=== PATIENT | female | born 1945 | race African-American/Black ===

== ENCOUNTER 2021-03-02 03:00 | Emergency (ER) | payer OTHER ==
[~2021-03-02] VITALS: Ht 162.6 cm; Wt 88.0 kg
[2021-03-02] MEDS ORDERED: PHENAZOPYRIDINE 200 MG TABLET. PO ONE (03:30)
[2021-03-02 03:32] LABS: BILIRUBIN,URINE SMALL (NEG); CLARITY,URINE CLEAR; COLOR,URINE YELLOW; NITRITE,URINE NEGATIVE (NEG); PH,URINE 5.5 (<5.0-8.0); PROTEIN,URINE NEGATIVE (NEG-TRACE)
[2021-03-02 03:44] LABS: BACTERIA,URINE FEW /HPF (0-FEW); RBC,URINE OCC /HPF (0-2)
[2021-03-02] MEDS ORDERED: NITR100C63 PO (03:51)
[2021-03-02] MEDS ORDERED: PHEN-318 PO (03:51)
--- NOTE | 2021-03-02 03:52 | PHYS DOC ---
Past Medical History Past Surgical History: No Surgical History Smoking Status: Never Smoker Alcohol Use: None General Adult EDM: Chief Complaint: BACK PAIN OR INJURY HPI: HPI: Patient is a 75 year old female presents with the chief complaint of bilateral flank pain right side greater than left x 2-3 days. Patient states right sided pain radiates to right suprapubic region. Patient states she has associated urinary frequency. She denies dysuria. States in december had same symptoms was evalauted by pcp and dx with uti. Patient was placed on keflex. Review of Systems: Review of Systems: Constitutional: Denies fever or chills. [] Eyes: Denies change in visual acuity. [] HENT: Denies nasal congestion or sore throat. [] Respiratory: Denies cough or shortness of breath. [] Cardiovascular: Denies chest pain or edema. [] GI: Denies abdominal pain, nausea, vomiting, bloody stools or diarrhea. [] : Denies dysuria. [positive flank pain positive urinary frequency] Musculoskeletal: Denies back pain or joint pain. [] Integument: Denies rash. [] Neurologic: Denies headache, focal weakness or sensory changes. [] Endocrine: Denies polyuria or polydipsia. [] Lymphatic: Denies swollen glands. [] Psychiatric: Denies depression or anxiety. [] Heart Score: C/O Chest Pain: N/A Risk Factors: Risk Factors: DM, Current or recent (<one month) smoker, HTN, HLP, family history of CAD, obesity. Risk Scores: Score 0 - 3: 2.5% MACE over next 6 weeks - Discharge Home Score 4 - 6: 20.3% MACE over next 6 weeks - Admit for Clinical Observation Score 7 - 10: 72.7% MACE over next 6 weeks - Early Invasive Strategies Current Medications: Current Medications Medications (Trade) Dose Ordered Sig/Geovanna Start Time Stop Time Status Last Admin Dose Admin Phenazopyridine HCl (Pyridium) 200 mg 1X ONCE 03/02/21 03:30 03/02/21 03:33 DC Allergies: Allergies: Allergies Coded Allergies Type Severity Reaction Last Updated Verified No Known Drug Allergies 03/02/21 No Physical Exam: PE: Constitutional: Well developed, well nourished, no acute distress, non-toxic appearance. [] HENT: Normocephalic, atraumatic, bilateral external ears normal, oropharynx moist, no oral exudates, nose normal. [] Eyes: PERRLA, EOMI, conjunctiva normal, no discharge. [] Neck: Normal range of motion, no tenderness, supple, no stridor. [] Cardiovascular:Heart rate regular rhythm, no murmur [] Lungs & Thorax: Bilateral breath sounds clear to auscultation [] Abdomen: Bowel sounds normal, soft, no tenderness, no masses, no pulsatile masses. [] Skin: Warm, dry, no erythema, no rash. [] Back: No tenderness, no CVA tenderness. [] Extremities: No tenderness, no cyanosis, no clubbing, ROM intact, no edema. [] Neurologic: Alert and oriented X 3, normal motor function, normal sensory function, no focal deficits noted. [] Psychologic: Affect normal, judgement normal, mood normal. [] Current Patient Data: Labs: Laboratory Tests Test 03/02/21 03:17 Urine Collection Type Unknown Urine Color Yellow Urine Clarity Clear Urine pH 5.5 (<5.0-8.0) Urine Specific Matthews 1.025 (1.000-1.030) Urine Protein Negative mg/dL (NEG-TRACE) Urine Glucose (UA) Negative mg/dL (NEG) Urine Ketones (Stick) Negative mg/dL (NEG) Urine Blood Negative (NEG) Urine Nitrite Negative (NEG) Urine Bilirubin Small (NEG) Urine Urobilinogen Dipstick 1.0 mg/dL (0.2 mg/dL) Urine Leukocyte Esterase Moderate (NEG) Urine RBC Occ /HPF (0-2) Urine WBC 5-10 /HPF (0-4) Urine Squamous Epithelial Cells Mod /LPF Urine Bacteria Few /HPF (0-FEW) Urine Mucus Marked /LPF Vital Signs: Vital Signs Date Time Temp Pulse Resp B/P (MAP) Pulse Ox O2 Delivery O2 Flow Rate FiO2 03/02/21 03:21 98.3 80 16 152/72 (98) 96 98.3 EKG: EKG: [] Radiology/Procedures: Radiology/Procedures: [] Course & Med Decision Making: Course & Med Decision Making Pertinent Labs and Imaging studies reviewed. (See chart for details) []treated with pyridum- and toradol 15mg IM. UA consistent with UTI. Treated with macrobid. DC home on macrobid x 7 days and pyridym x 2 days Chad Disclaimer: Chad Disclaimer: This electronic medical record was generated, in whole or in part, using a voice recognition dictation system. Departure Departure Impression: Primary Impression: UTI (urinary tract infection) Disposition: HOME / SELF CARE / HOMELESS Condition: STABLE Patient Instructions: Urinary Tract Infection Scripts Phenazopyridine Hcl (PYRIDIUM) 200 Mg Tablet 1 TAB PO TID for urinary discomfort for 2 Days, #6 TAB 0 Refills Prov: GONZALEZ WATSON DO 03/02/21 Nitrofurantoin Macrocrystal (MACRODANTIN) 100 Mg Capsule 1 CAP PO BID for 7 Days, #14 CAP 0 Refills Prov: GONZALEZ WATSON DO 03/02/21 GONZALEZ WATSON DO Mar 02, 2021 03:52
[2021-03-02] MEDS ORDERED: NITROFURANTOIN MONOHYD/M-CRYST 100 MG CAPSULE. PO ONE (04:00)
[2021-03-02 04:15] VITALS: BP 165/72
[2021-03-02] MEDS ORDERED: KETOROLAC 15 MG/ML VIAL. ONE (04:15)
[2021-03-02] MEDS ORDERED: KETOROLAC 15 MG/ML VIAL. IM ONE (04:15)
== END 2021-03-02 04:43 | disposition home or self-care (01) ==
LOC: ER 03:00
DX: N39.0 Urinary tract infection, site not specified (principal)
CPT/HCPCS: 81001; 87086; 96372; 99283; J1885